=== PATIENT | male | born 1960 | race Caucasian/White ===

== ENCOUNTER 2021-04-05 15:37 | Inpatient (IN) | payer MEDICARE, OTHER ==
[~2021-04-05] VITALS: Ht 177.8 cm; Wt 95.7 kg
[2021-04-05 19:16] LABS: HEMOGLOBIN 14.3 gm/dl (14.0-17.5); RED BLOOD COUNT 4.95 M/UL (4.20-5.50); WHITE BLOOD COUNT 7.4 K/UL (4.5-11.0)
[2021-04-05 19:44] LABS: BUN/CREATININE RATIO 17 (0-10)
[2021-04-05] MEDS ORDERED: CLONIDINE HCL0.2 MG PO (20:04)
[2021-04-05] MEDS ORDERED: CRESTOR40 MG PO (20:04)
[2021-04-05] MEDS ORDERED: METOPROLOL SUCC50 MG PO (20:04)
[2021-04-05] MEDS ORDERED: CLOPIDOGREL75 MG PO (20:05)
[2021-04-05] MEDS ORDERED: AMLODIPINE BESY10 MG PO (20:05)
[2021-04-05] MEDS ORDERED: METFORMIN HCL1000 MG PO (20:05)
[2021-04-06 03:13] LABS: HEMOGLOBIN 14.6 gm/dl (14.0-17.5); RED BLOOD COUNT 5.03 M/UL (4.20-5.50)
[2021-04-06 03:16] LABS: WHITE BLOOD COUNT 9.9 K/UL (4.5-11.0)
[2021-04-06 03:37] LABS: BUN/CREATININE RATIO 16 (0-10)
[2021-04-06] MEDS ORDERED: ASPIRIN EC81 MG PO (15:16)
[2021-04-06] MEDS ORDERED: NITROGLYCE20 MG/1 GM TOP (15:16)
[2021-04-06] MEDS ORDERED: LOPRESSOR 50 MG50 MG PO (15:16)
== END 2021-04-06 21:45 | disposition short-term general hospital (02) | DRG 280 ==
LOC: PROG CARE 17:59 → CDU 17:59 → PROG CARE 18:13
PROVIDERS: Internal Medicine; ADMIT Internal Medicine
PROC: 8E0ZXY6 Isolation (ICD-10-PCS; 2021-04-05)
PROC: 4A023N7 Measurement of Cardiac Sampling and Pressure, Left Heart, Percutaneous Approach (ICD-10-PCS; principal; 2021-04-06)
PROC: B2151ZZ Fluoroscopy of Left Heart using Low Osmolar Contrast (ICD-10-PCS; 2021-04-06)
PROC: B2111ZZ Fluoroscopy of Multiple Coronary Arteries using Low Osmolar Contrast (ICD-10-PCS; 2021-04-06)
PROC: B24BZZZ Ultrasonography of Heart with Aorta (ICD-10-PCS; 2021-04-06)
DX: I21.4 Non-ST elevation (NSTEMI) myocardial infarction (principal); U07.1 COVID-19; I48.91 Unspecified atrial fibrillation; F17.210 Nicotine dependence, cigarettes, uncomplicated; E78.00 Pure hypercholesterolemia, unspecified; I10 Essential (primary) hypertension; I25.110 Atherosclerotic heart disease of native coronary artery with unstable angina pectoris; I08.1 Rheumatic disorders of both mitral and tricuspid valves; E11.65 Type 2 diabetes mellitus with hyperglycemia; Z95.1 Presence of aortocoronary bypass graft; Z95.5 Presence of coronary angioplasty implant and graft; Z79.82 Long term (current) use of aspirin; Z82.49 Family history of ischemic heart disease and other diseases of the circulatory system; Z79.01 Long term (current) use of anticoagulants; Z99.81 Dependence on supplemental oxygen; Z90.89 Acquired absence of other organs
CPT/HCPCS: ECHO; 36415; 71046; 80048; 82550; 82553; 82962; 83735; 83880; 84484; 85025; 85027; 85610; 85730; 93005; 93306; 99152; C1769; C1894; J1200; J1644; J2250; J2270; J3010; Q9967